=== PATIENT | female | born 1940 | race Two or more races ===

== ENCOUNTER 2018-11-17 08:54 | Outpatient (CLI) | payer OTHER ==
[~2018-11-17 08:54] MED LIST: URSODIOL500 MG
== END 2018-11-17 08:58 | disposition home or self-care (01) ==
LOC: LAB 08:54
DX: G44.52 New daily persistent headache (NDPH) (principal)

== ENCOUNTER 2018-11-19 08:52 | Outpatient (CLI) | payer OTHER | END 2018-11-19 08:57 | disposition home or self-care (01) | LOC: TOM 08:52 | DX: G44.52 New daily persistent headache (NDPH) (principal) | CPT/HCPCS: 70470; Q9965 ==

== ENCOUNTER → 2018-11-22 | Outpatient (CLI) | payer OTHER | END | disposition home or self-care (01) | LOC: MAMO-SONO 08:47 | DX: C78.7 Secondary malignant neoplasm of liver and intrahepatic bile duct (principal); K74.0 Hepatic fibrosis; C74.00 Malignant neoplasm of cortex of unspecified adrenal gland; N64.89 Other specified disorders of breast; M54.5 Low back pain; E55.9 Vitamin D deficiency, unspecified; E78.89 Other lipoprotein metabolism disorders; J06.9 Acute upper respiratory infection, unspecified; B34.8 Other viral infections of unspecified site; Z12.4 Encounter for screening for malignant neoplasm of cervix; Z12.72 Encounter for screening for malignant neoplasm of vagina; Z13.820 Encounter for screening for osteoporosis; Z12.31 Encounter for screening mammogram for malignant neoplasm of breast; Z87.898 Personal history of other specified conditions ==

== ENCOUNTER 2022-08-07 07:09 | Outpatient (CLI) | payer OTHER | END 2022-08-07 07:10 | disposition home or self-care (01) | LOC: NUCLEAR 07:09 | PROVIDERS: ATTEND Internal Medicine Gastroenterology | DX: K80.20 Calculus of gallbladder without cholecystitis without obstruction (principal) | CPT/HCPCS: 78227; A9537; J2805 ==

== ENCOUNTER 2024-05-02 09:48 | Emergency (ER) | payer OTHER ==
[~2024-05-02] VITALS: Ht 160 cm; Wt 65.8 kg
[2024-05-02] MEDS ORDERED: DRAMAMINE LESS25 MG (10:04)
[2024-05-02] MEDS ORDERED: ROSUVASTATIN CA10 MG PO (10:04)
[2024-05-02] MEDS ORDERED: COZAAR50 MG PO (10:05)
[2024-05-02 11:48] LABS: HEMATOCRIT 46.3 % (36.0-45.00); HEMOGLOBIN 15.6 g/dL (12.0-15.00); MEAN CELL VOLUME 95.2 fL (80.00-100.00); MEAN CORPUSCULAR HEMOGLOBIN 32.1 pg (27.00-32.0); MEAN CORPUSCULAR HGB CONC 33.7 g/dl (32.0-36.0); PLATELET COUNT 182 K/uL (150-450); RED BLOOD COUNT 4.87 M/uL (4.00-6.00); RED CELL DISTRIBUTION WIDTH 13.9 % (11.5-14.5)
[2024-05-02 12:09] LABS: PH,URINE 7.5 (5.0-8.0); URINE APPEARANCE Clear; URINE BILIRRUBIN Negative (NEGATIVE); URINE BLOOD Negative; URINE COLOR Yellow; URINE GLUCOSE Negative (NEGATIVE); URINE KETONE Negative (NEGATIVE); URINE LEUKOCYTE Trace; URINE NITRATE Negative; URINE PROTEIN Negative (NEGATIVE); URINE UROBILINOGEN 0.2 E.U./dl
[2024-05-02 12:15] LABS: URINE BACTERIA 31.7 uL (0.0-1933); URINE RBC 3.5 uL (0.0-20.8); URINE WBC 2.9 uL (0.0-23.2)
[2024-05-02 12:18] LABS: URINE CAST 0.14 uL (0.0-1.40); URINE EPITHELIAL CELLS 0.6 uL (0.0-38.8)
[2024-05-02 12:41] LABS: ALBUMIN 3.6 gm/dL (3.4-5.0); BILIRUBIN TOTAL 0.81 mg/dL (0.3-1.2); CALCIUM 10.1 mg/dL (8.5-10.1); CREATININE SERUM 0.8 mg/dL (0.55-1.02); GFR 68.84; GLOBULINA 6.3 G/DL (2.4-3.5); POTASSIUM 3.76 mEq/L (3.5-5.1); TOTAL PROTEIN 9.9 gm/dL (6.4-8.2)
[2024-05-02] MEDS ORDERED: ADVIL DUAL ACT1 EACH PO (12:54)
== END 2024-05-02 13:01 | disposition home or self-care (01) ==
LOC: ER 09:50
PROVIDERS: Emergency Medicine
DX: R07.89 Other chest pain (principal); Z91.013 Allergy to seafood; K80.20 Calculus of gallbladder without cholecystitis without obstruction; K74.69 Other cirrhosis of liver